=== PATIENT | female | born 1955 | race Caucasian/White ===

== ENCOUNTER 2018-12-22 12:24 | Emergency (ER) | payer BC ==
[2018-12-22] MEDS ORDERED: HYDROmorphone 2 MG/ML SDV IM STA (12:30)
--- NOTE | 2018-12-22 12:41 | EDM.PDOC ---
ED HPI GENERAL MEDICAL PROBLEM - General Stated Complaint: BACK PAIN Time Seen by Provider: 12/22/18 12:24 Source of Information: Reports: Patient, Family History Limitations: Reports: Physical Impairment - History of Present Illness INITIAL COMMENTS - FREE TEXT/NARRATIVE: 63 y.o.w.f came to the ed with ER due to chronic low back pain, which is worse today. No trauma, no stool or urine incontinence. Pain is localized at her left lower back. No N/V/D no dizziness, no SOB, no chest pain are any other acute medical issues. BP 172/82 RR 18 Pulse ox 100% on RA Pulse 101 Temp 36.8 Onset Date: 12/19/18 Onset Time: 06:00 Duration: Day(s):, Getting Worse, Intermittent Location: Reports: Back Quality: Reports: Burning, Dull, Pressure, Same as Previous Episode Severity: Moderate Improves with: Reports: Rest Worsens with: Reports: Movement Context: Reports: Other (chronic) Associated Symptoms: Reports: No Other Symptoms, Other (no stool or urine incontinence) LEFT LOWER BACK RADIATING TO LEFT HIP Pain Score (Numeric/FACES): 9 - Related Data Allergies Allergy/AdvReac Type Severity Reaction Status Date / Time latex Allergy Rash Verified 12/22/18 12:34 morphine Allergy Rash Verified 12/22/18 12:34 Home Meds: Home Meds Acetaminophen/oxyCODONE [Percocet 325-5 MG] 1 each PO Q6HRBH PRN #16 tab [Rx] Allopurinol [Zyloprim] 100 mg PO DAILY 12/22/18 [History] Aspirin [Halfprin] 81 mg PO DAILY 12/22/18 [History] Calc/D3/Mag/Zn/Estimator Lumber/Babatunde/[place] [Calcium 600 MG Plus Vit D] 1 each PO DAILY [History] Ciprofloxacin HCl [Cipro] 500 mg PO BID #20 tablet 12/22/18 [Rx] Hydrochlorothiazide/Lisinopril [Lisinopril/HCTZ 20-12.5 MG] 2 tab PO DAILY 12/22 [History] Multivitamins [Tab-A-Amara] 1 each PO DAILY 12/22/18 [History] Omeprazole 20 mg PO DAILY 12/22/18 [History] Simvastatin [Zocor] 20 mg PO BEDTIME 12/22/18 [History] ED ROS GENERAL - Review of Systems Review Of Systems: See Below Constitutional: Reports: No Symptoms HEENT: Reports: No Symptoms Respiratory: Reports: No Symptoms Cardiovascular: Reports: No Symptoms Endocrine: Reports: No Symptoms GI/Abdominal: Reports: No Symptoms : Reports: No Symptoms Musculoskeletal: Reports: Back Pain Skin: Reports: No Symptoms Neurological: Reports: No Symptoms Psychiatric: Reports: No Symptoms Hematologic/Lymphatic: Reports: No Symptoms Immunologic: Reports: No Symptoms ED EXAM,LOWER BACK PAIN/INJURY - Physical Exam Exam: See Below Exam Limited By: Physical Impairment General Appearance: Alert, WD/WN, Moderate Distress, Obese Eye Exam: Bilateral Eye: Normal Inspection Ears: Normal External Exam Nose: Normal Inspection Throat/Mouth: Normal Inspection Head: Atraumatic, Normocephalic Neck: Normal Inspection, Supple, Non-Tender Respiratory/Chest: No Respiratory Distress, Lungs Clear, Normal Breath Sounds, No Accessory Muscle Use, Chest Non-Tender Cardiovascular: Normal Peripheral Pulses, Regular Rate, Rhythm, No Edema, No Gallop, No JVD, No Murmur, No Rub GI/Abdominal: Normal Bowel Sounds, Soft, Non-Tender, No Organomegaly, No Distention, No Abnormal Bruit, No Mass, Pelvis Stable (Female) Exam: Deferred Rectal (Female) Exam: Deferred Back Exam: Normal Inspection, Decreased Range of Motion Extremities: Normal Inspection, Normal Range of Motion, Non-Tender, Normal Capillary Refill Neurological: Alert, Normal Mood/Affect, Normal Dorsiflexion, CN II-XII Intact, Abnormal Gait (due to back pain) Psychiatric: Normal Affect, Normal Mood Skin Exam: Warm, Dry, Intact, Normal Color, No Rash Lymphatic: No Adenopathy Course - Vital Signs Text/Narrative:: 63 y.o.w.f came to the ed with ER due to chronic low back pain, which is worse today. No trauma, no stool or urine incontinence. Pain is localized at her left lower back. No N/V/D no dizziness, no SOB, no chest pain are any other acute medical issues. BP 172/82 RR 18 Pulse ox 100% on RA Pulse 101 Temp 36.8 PE: WNWD W F with chonic low back pain exacerbation after she got out her bed this am. 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 Imaging: Spinal stenosis, disc protrusions, official report is pending Impression: Spinal stenosis, Disc protrusions, UTI Tx: Levaquin, Dilaudid, ICE Reexam: Improved pain from 06/21 to 02/19 Plan: D/C with instructions Last Recorded V/S: Last Vital Signs Temp 36.7 C 12/22/18 14:03 Pulse 66 12/22/18 14:30 Resp 16 12/22/18 14:30 BP 167/62 H 12/22/18 14:30 Pulse Ox 96 12/22/18 14:30 - Orders/Labs/Meds Labs: Laboratory Tests 12/22/18 Range/Units 13:15 Urine Color Yellow (YELLOW) Urine Appearance Slightly cloudy (CLEAR) Urine pH 6.0 (5.0-6.5) Ur Specific [place] 1.020 (1.010-1.025) Urine Protein Negative (NEGATIVE) mg/dL Urine Glucose (UA) Normal (NORMAL) mg/dL Urine Ketones Negative (NEGATIVE) mg/dL Urine Occult Blood Negative (NEGATIVE) Urine Nitrite Negative (NEGATIVE) Urine Bilirubin Negative (NEGATIVE) Urine Urobilinogen Normal (NEGATIVE) mg/dL Ur Leukocyte Esterase Small H (NEGATIVE) Urine RBC 0-5 (0-5) Urine WBC 10-20 H (0-5) Ur Squamous Epith Cells Few H (NS,R,O) Urine Bacteria Moderate H (NS) Meds: Medications Discontinued Medications Generic Name Dose Route Start Last Admin Trade Name Freq PRN Reason Stop Dose Admin Hydromorphone HCl 1 mg 12/22/18 12:30 12/22/18 12:40 Dilaudid IM 12/22/18 12:31 1 mg ONETIME STA Administration Levofloxacin 500 mg 12/22/18 14:00 12/22/18 14:08 Levaquin PO 12/22/18 14:01 500 mg ONETIME ONE Administration Departure - Departure Time of Disposition: 14:09 Disposition: Home, Self-Care 01 Condition: Good Clinical Impression: Spinal stenosis of lumbar region at multiple levels, Protrusion of lumbar intervertebral disc, UTI symptoms - Discharge Information Prescriptions: Acetaminophen/oxyCODONE [Percocet 325-5 MG] 1 each PO Q6HRBH PRN #16 tab PRN Reason: for severe pain only Ciprofloxacin HCl [Cipro] 500 mg PO BID #20 tablet Instructions: Back Pain, Adult, Urinary Tract Infection, Adult, Spinal Stenosis , [id number] Referrals: Lina,Eamon, MD [Primary Care Provider] - Forms: ED Department Discharge Additional Instructions: Please apply ICE to lower back, please take Motrin 600 mg with food every 6-8 hours for mod pain, Percocet for severe pain only, please f/u with your PMD/ Spinal surgeon, Please come back if your symptoms get worse acutely
[2018-12-22] MEDS ORDERED: Levofloxacin 500 MG Tab PO ONE (14:00)
--- NOTE | 2018-12-22 14:50 | CT ---
INDICATION: Severe low back pain and left hip pain. CT PELVIS WITHOUT CONTRAST: Spiral 1.25 mm axial sections were obtained through the pelvis with sagittal and coronal reconstructions without contrast. Examination was obtained 12/22/18 - no comparisons. Total exam DLP = 1,164.23 mGy-cm. Low density lesion with trabeculation is noted in the vertebral body of L4, possibly representing a hemangioma. Mild degenerative changes are noted at the sacroiliac joints, significantly more prominent on the right than the left. Mild degenerative changes are noted at the hip joints with the joint spaces appearing somewhat narrowed posteriorly. Overall bone density appeared to be normal. Incidentally noted were findings compatible with previous bowel surgery in the sigmoid colon and absence of the uterus, compatible with hysterectomy. The urinary bladder appeared normal. The appendix is felt to be normal in size, seen on coronal images #45 through # 50 but did include metallic density within it as amorphous and may represent medication. The appendix is also visualized on axial images #49 through #66. No free air or bowel obstruction was suggested. Calcifications are noted in the aorta and iliac arteries. IMPRESSION: 1. No acute abnormality was identified. 2. Mild degenerative changes with mild loss of craniolateral joint space at the hips. 3. Asymmetrical mild degenerative change is noted at the sacroiliac joints, right greater than left. 4. ASD. 5. Metallic density in the appendix, likely due to medication, is amorphous not obstructive, no appendicitis. Report was given by phone to Dr. Whitaker at 1402 hours on 12/22/18. [facility]
--- NOTE | 2018-12-22 15:06 | CT ---
INDICATION: Severe low back pain and left hip pain. CT LUMBOSACRAL SPINE WITHOUT CONTRAST: Spiral 2.5 mm axial sections were obtained through the lumbosacral spine with sagittal and coronal reconstructions and reconstructions with angle through the disk spaces at L2-3, L3-4, L4-5, and L5-S1. Examination was obtained 12/22/18 - no comparisons. Total exam DLP = 2,460.44 mGy-cm. Bulging disks are noted at L2-3, L3-4, L4-5, and L5-S1 with definite narrowing of disk space seen at L4-5 and especially at L5-S1. A mild degree of spinal stenosis is noted at L3-4 with a moderate to moderately severe degree of spinal stenosis due to bulging disk and hypertrophic degenerative changes at L4-5 apophyseal joints. The hypertrophic spurring is fairly severe at that level. It is less severe but still at least moderate in degree of severity at L3-4 with relatively milder degenerative changes at the L2 -3 apophyseal joints. At the L4 vertebral body, there is a low density trabeculated lesion, which likely represents a hemangioma, most likely of benign origin. Nuclear bone imaging or MRI may be helpful to confirm benign lesion, if symptoms are directly referable to that area in the future. No evidence of an acute bone or joint abnormality was identified with vertebral body heights well maintained. There is suggestion of very minimal anterolisthesis at L4-5 and L5-S1. IMPRESSION: 1. Spinal stenosis, moderately severe at L4-5, moderate at L3-4. 2. No evidence of abdominal aortic aneurysm. 3. Protruding disks in general with no definite focal herniated nucleus pulposus seen from the L2-3 level through the L5-S1 level. 4. Mild dextroconcave scoliosis of the upper middle lumbar spine. 5. Probable localized limited hemangioma at the L4 vertebral body. 6. Degenerative changes sacroiliac joints. Report was given by phone to Dr. Whitaker at 1402 hours on 12/22/18. [facility]
== END 2018-12-22 14:26 | disposition home or self-care (01) ==
LOC: FB.ED 12:24
DX: M48.061 Spinal stenosis, lumbar region without neurogenic claudication (principal); M51.26 Other intervertebral disc displacement, lumbar region; N39.0 Urinary tract infection, site not specified; Z79.899 Other long term (current) drug therapy; Z91.040 Latex allergy status; Z88.5 Allergy status to narcotic agent
CPT/HCPCS: 72131; 72192; 81001; 87086; 87088; 87186; 96372; 99284; A9270; J1170

== ENCOUNTER 2018-12-25 21:36 | Emergency (ER) | payer BC ==
[2018-12-25] MEDS ORDERED: Promethazine 25 MG/ML SDV IM ONE (22:36)
[2018-12-25] MEDS ORDERED: HYDROmorphone 2 MG/ML SDV IM ONE (22:36)
--- NOTE | 2018-12-25 22:45 | EDM.PDOC ---
ED HPI GENERAL MEDICAL PROBLEM - General Chief Complaint: Back Pain or Injury Stated Complaint: BACK PAIN Time Seen by Provider: 12/25/18 22:25 Source of Information: Reports: Patient History Limitations: Reports: No Limitations - History of Present Illness INITIAL COMMENTS - FREE TEXT/NARRATIVE: 63-year-old female with history of chronic left lower back pain who has had a worsening of her back pain since 12/20/2018. She was seen in the emergency department on 12/22/[address] scan of her pelvis and her lumbar spine which showed no acute abnormalities in the pelvis but she did have spinal stenosis at several levels and this was felt to be the cause of her worsening pain. She was seen by her primary doctor this morning and was supposed to be set up for an epidural steroid injection of her back she has been taking Percocet for her pain but apparently has only been taking one 5/325 tablet for the pain and she took a dose 7:30 and has been unable to get comfortable from the pain. It's pain as an 8/10. She appears to be quite uncomfortable area in she has had no fevers or chills. She's had no nausea or vomiting. Pain did seem to radiate to her left lower abdomen with a spasm in the area that was short- lived. She has been having normal bowel movements. She apparently was also treated for urinary tract infection but she is having no urinary symptoms present. She presents to the emergency department now reporting that she just can't take the pain and wants some relief from the pain. There are no other associated signs or symptoms. There are no other modifying factors. Onset: Gradual, Other (As above) Duration: Waxing/Waning Location: Reports: Back (As above) Quality: Reports: Ache, Sharp, Throbbing Severity: Severe Improves with: Reports: Cold Therapy. 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: As in history of present illness left lower back Pain Score (Numeric/FACES): 9 - Related Data Allergies Allergy/AdvReac Type Severity Reaction Status Date / Time latex Allergy Rash Verified 12/25/18 21:57 morphine Allergy Rash Verified 12/25/18 21:57 Home Meds: Home Meds Acetaminophen/oxyCODONE [Percocet 325-5 MG] 1 each PO Q6HRBH PRN #16 tab [Rx] Allopurinol [Zyloprim] 100 mg PO DAILY 12/22/18 [History] Aspirin [Halfprin] 81 mg PO DAILY 12/22/18 [History] Calc/D3/Mag/Zn/Juvenile Justice Officer/Bab[place]unde/[place] [Calcium 600 MG Plus Vit D] 1 each PO DAILY [History] Ciprofloxacin HCl [Cipro] 500 mg PO BID #20 tablet 12/22/18 [Rx] Hydrochlorothiazide/Lisinopril [Lisinopril/HCTZ 20-12.5 MG] 2 tab PO DAILY 12/22 [History] Multivitamins [Tab-A-Amara] 1 each PO DAILY 12/22/18 [History] Omeprazole 20 mg PO DAILY 12/22/18 [History] Simvastatin [Zocor] 20 mg PO BEDTIME 12/22/18 [History] Past Medical History Cardiovascular History: Reports: High Cholesterol, Hypertension Other Gastrointestinal History: DIVERTICULITIS Musculoskeletal History: Reports: Arthritis, Back Pain, Chronic - Infectious Disease History Other Infectious Disease History: HAS HEPATITIS WHEN SHE WAS YOUNGER BUT UNKNOWN WHAT TYPE - Past Surgical History HEENT Surgical History: Reports: Other (See Below) Other HEENT Surgeries/Procedures: UPPER LIP CA GI Surgical History: Reports: Other (See Below) Other GI Surgeries/Procedures: COLON RESECTION Female Surgical History: Reports: Section, Hysterectomy Other Musculoskeletal Surgeries/Procedures:: LEFT FOOT PLATE AND SCREWS Social & Family History - Family History Family Medical History: Noncontributory - Tobacco Use Smoking Status *Q: Never Smoker Second Hand Smoke Exposure: No - Caffeine Use Caffeine Use: Reports: Coffee - Recreational Drug Use Recreational Drug Use: No ED ROS GENERAL - Review of Systems Review Of Systems: See Below Constitutional: Reports: No Symptoms HEENT: Reports: No Symptoms Respiratory: Reports: No Symptoms Cardiovascular: Reports: No Symptoms Endocrine: Reports: No Symptoms GI/Abdominal: Reports: No Symptoms : Reports: No Symptoms Musculoskeletal: Reports: Back Pain. Denies: Joint Swelling Skin: Reports: No Symptoms Neurological: Reports: No Symptoms. Denies: Headache, Difficulty Walking, Weakness Psychiatric: Reports: No Symptoms Hematologic/Lymphatic: Denies: Easy Bleeding, Easy Bruising Immunologic: Reports: No Symptoms ED EXAM, GENERAL - Physical Exam Exam: See Below Exam Limited By: No Limitations General Appearance: Alert, WD/WN, Moderate Distress Eye Exam: Bilateral Eye: EOMI, Normal Inspection, PERRL Ears: Normal External Exam, Hearing Grossly Normal Ear Exam: Bilateral Ear: Auricle Normal Nose: Normal Inspection, Normal Mucosa, No Blood Throat/Mouth: Normal Inspection, Normal Voice Head: Atraumatic, Normocephalic Neck: Normal Inspection, Supple, Non-Tender, Full Range of Motion Respiratory/Chest: No Respiratory Distress, Lungs Clear, Normal Breath Sounds Cardiovascular: Normal Peripheral Pulses, Regular Rate, Rhythm, No JVD Peripheral Pulses: 2+: Radial (L), Radial (R) GI/Abdominal: Normal Bowel Sounds, Soft, Non-Tender, No Organomegaly, No Distention Extremities: Normal Inspection, Normal Range of Motion, No Pedal Edema Neurological: Alert, Oriented, Normal Cognition, No Motor/Sensory Deficits Psychiatric: Normal Affect, Normal Mood Skin Exam: Warm, Dry, Intact, Normal Color, No Rash Lymphatic: No Adenopathy Course - Vital Signs Last Recorded V/S: Last Vital Signs Temp 36.8 C 12/25/18 21:40 Pulse 104 H 12/25/18 21:40 Resp 17 12/25/18 21:40 BP 151/59 H 12/25/18 21:40 Pulse Ox 100 12/25/18 21:40 - Orders/Labs/Meds Meds: Medications Discontinued Medications Generic Name Dose Route Start Last Admin Trade Name Freq PRN Reason Stop Dose Admin Hydromorphone HCl 2 mg 12/25/18 22:36 Dilaudid IM 12/25/18 22:37 ONETIME ONE Promethazine HCl 25 mg 12/25/18 22:36 Phenergan IM 12/25/18 22:37 ONETIME ONE - Re-Assessments/Exams Free Text/Narrative Re-Assessment/Exam: 12/25/18 22:42: The results of her CT scan of her lumbar spine and her pelvis were reviewed. She appears to have spinal stenosis causing symptoms. She has only been taking one 5/325 Percocet at home every hours for pain. In the short course, she will need to increase this to 2 tablets every 6 hours as needed. She does appear to be in pain but otherwise nontoxic. She is just seen her doctor this morning and was supposed to be set up for an epidural steroid injection. I will plan on giving her a dose of Dilaudid and Phenergan now and have her follow-up with her primary doctor tomorrow at least telephonically to try to arrange the back injection sooner. Departure - Departure Time of Disposition: 22:50 Disposition: Home, Self-Care 01 Condition: Good Clinical Impression: Spinal stenosis of lumbar region at multiple levels, Lumbar back pain, Uncontrolled pain - Discharge Information Instructions: Chronic Back Pain Referrals: Eamon Mills MD [Primary Care Provider] - Additional Instructions: You may take 2 tablets of your Percocet/oxycodone every 6 hours as needed for pain. You were given an injection of Dilaudid and Phenergan tonight for your pain. You should rest. You should ambulate as tolerated. Follow-up with Dr. Mcgrath telephonically tomorrow. Back to the emergency department for abdominal pain, leg weakness, bowel or bladder control problems, fever or any other concerning sign or symptom.
== END 2018-12-25 23:27 | disposition home or self-care (01) ==
LOC: FB.ED 21:36
DX: M48.061 Spinal stenosis, lumbar region without neurogenic claudication (principal); E78.00 Pure hypercholesterolemia, unspecified; I10 Essential (primary) hypertension; Z91.040 Latex allergy status; Z88.5 Allergy status to narcotic agent; Z79.899 Other long term (current) drug therapy; Z79.82 Long term (current) use of aspirin
CPT/HCPCS: 96372; 99283; J1170; J2550

== ENCOUNTER 2021-07-24 13:45 | Observation (INO) | payer MEDICARE, BC ==
[2021-07-24] MEDS ORDERED: HYDROmorphone 2 MG/ML SDV IVPUSH PRN (14:08)
[2021-07-24] MEDS ORDERED: Promethazine 25 MG Tab PO PRN (14:08)
[2021-07-24] MEDS ORDERED: Ondansetron 4 MG/2 ML SDV IVPUSH PRN (14:08)
[2021-07-24] MEDS: Sodium Chloride 0.9% 10 ML Syringe FLUSH PRN (14:40)
[2021-07-24] MEDS ORDERED: Iopamidol 755 MG/ML 150 ML Bottle IV ONE (14:46)
--- NOTE | 2021-07-24 15:14 | PCM.HP.2 ---
H&P History of Present Illness - General Date of Service: 07/24/21 Admit Problem/Dx: Admission Diagnosis/Problem Admission Diagnosis/Problem Epigastric pain Source of Information: Patient, Provider History Limitations: Reports: No Limitations - History of Present Illness Initial Comments - Free Text/Narative: Lynda presents for direct admission for epigastric & LLQ pain for past week. She had Covid & Flu vaccines last 07/16, symptoms started next day accompanied with fever so she initially thought it was side effects of vaccines. She did clear liquids for a few days which did not improve the pain. She has irritable bowel so alternates between constipation & diarrhea usually. She has history of diverticulitis, had ciprofloxacin prescribed by Dr Mills for flares so she started this last week. She advanced her diet and states that it didn't make the pain better or worse. She had GI bleed about 2 years ago, had EGD/colonoscopy which did not find source of bleeding but she did require transfusion at the time. She had colon resection for diverticulitis in past, had anastomosis. History of appy, C-sections x 2, tubal ligation but still has her uterus & gallbladder. No fevers today. She states she has been short of breath prior to her vaccines, cough but Covid test in clinic was negative. EKG done in Clinic showed NSR, few premature ventricular beats. WBC 7.1, Hgb 10.3(12.5 on 12/04/20), Cr 1.13(0.9 on 12/04/20), BUN 20, K 4.5, Na 137. UA negative. Covid negative. Isabel Washington had called over for admission for further workup since she had history of GI bleed, Hgb has dropped since last checked, persistent epigastric pain. Code status: full. - Related Data Allergies/Adverse Reactions: Allergies Allergy/AdvReac Type Severity Reaction Status Date / Time latex Allergy Rash Verified 07/24/21 14:39 morphine Allergy Rash Verified 07/24/21 14:39 Home Medications: Home Meds Calc/D3/Mag/Zn/Aravind/Babatunde/[place] [Calcium 600 MG Plus Vit D] 1 each PO DAILY 12/22/18 [History] Ciprofloxacin HCl [Cipro] 500 mg PO BID #20 tablet 12/22/18 [Rx] Hydrochlorothiazide/Lisinopril [Lisinopril/HCTZ 20-12.5 MG] 2 tab PO DAILY 12/22/18 [History] Multivitamins [Tab-A-Amara] 1 each PO DAILY 12/22/18 [History] Simvastatin [Zocor] 20 mg PO BEDTIME 12/22/18 [History] Omeprazole 40 mg PO DAILY@0600 07/24/21 [History] allopurinoL [Zyloprim] 300 mg PO DAILY 07/24/21 [History] Past Medical History HEENT History: Reports: Impaired Vision Cardiovascular History: Reports: High Cholesterol, Hypertension 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: Musculoskeletal History: Reports: Arthritis, Back Pain, Chronic - Infectious Disease History Other Infectious Disease History: HAS HEPATITIS WHEN SHE WAS YOUNGER BUT UNKNOWN WHAT TYPE - Past Surgical History HEENT Surgical History: Reports: Other (See Below) Other HEENT Surgeries/Procedures: UPPER LIP CA GI Surgical History: Reports: Other (See Below) Other GI Surgeries/Procedures: COLON RESECTION Female Surgical History: Reports: Section, Hysterectomy Other Musculoskeletal Surgeries/Procedures:: LEFT FOOT PLATE AND SCREWS Social & Family History - Family History Family Medical History: No Pertinent Family History - Caffeine Use Caffeine Use: Reports: Coffee H&P Review of Systems - Review of Systems: Review Of Systems: Comprehensive ROS is negative, except as noted in HPI. Exam - Exam Exam: See Below - Exam General: Alert, Oriented, Cooperative, Mild Distress HEENT: PERRLA, Conjunctiva Clear, EOMI, Hearing Intact, Mucosa Moist & [place] Neck: Trachea Midline Lungs: Clear to Auscultation, Normal Respiratory Effort. No: Crackles, Wheezing Cardiovascular: Regular Rate, Regular Rhythm GI/Abdominal Exam: Soft, No Distention, Guarding, Tender (epigastric>LLQ), Abnormal Bowel Sounds (hypoactive BS x 4), Other (obese). No: Rigid, Rebound (Female) Exam: Deferred Rectal (Female) Exam: Deferred Extremities: No Pedal Edema, Normal Capillary Refill Peripheral Pulses: 2+: Radial (L), Radial (R), Posterior Tibial (L), Posterior Tibial (R), Dorsalis Pedis (L), Dorsalis Pedis (R) Skin: Warm, Dry, Intact Neurological: Cranial Nerves Intact, Normal Speech, Normal Tone *Q Meaningful Use (ADM) - VTE *Q VTE Pharmacological Contraindications *Q: Risk of Bleeding - VTE Risk Assess *Q Each Risk Factor Represents 1 Point: Obesity ( BMI > 25 kg/m2) Total Score 1 Point Risk Factors: 1 Each Risk Factor Represents 2 Points: Age 60 - 74 Years Total Score 2 Point Risk Factors: 2 Each Risk Factor Represents 3 Points: None Total Score 3 Point Risk Factors: 0 Each Risk Factor Represents 5 Points: None Total Score 5 Point Risk Factors: 0 Venous Thromboembolism Risk Factor Score *Q: 3 - Problem List (1) Epigastric pain SNOMED Code(s): 67760779 ICD Code: R10.13 - EPIGASTRIC PAIN Status: Acute Current Visit: Yes (2) LLQ pain SNOMED Code(s): 371807230 ICD Code: R10.32 - LEFT LOWER QUADRANT PAIN Status: Acute Current Visit: Yes (3) Dehydration SNOMED Code(s): 75813216 ICD Code: E86.0 - DEHYDRATION Status: Acute Current Visit: Yes (4) Anemia SNOMED Code(s): 652379408 ICD Code: D64.9 - ANEMIA, UNSPECIFIED Status: Acute Current Visit: Yes (5) History of GI bleed SNOMED Code(s): 480764632 ICD Code: Z87.19 - PERSONAL HISTORY OF OTHER DISEASES OF THE DIGESTIVE SYSTEM Status: Chronic Current Visit: Yes (6) History of diverticulosis SNOMED Code(s): 257538041 ICD Code: Z87.19 - PERSONAL HISTORY OF OTHER DISEASES OF THE DIGESTIVE SYSTEM Status: Chronic Current Visit: Yes (7) History of colon resection SNOMED Code(s): 663918509 ICD Code: Z90.49 - ACQUIRED ABSENCE OF OTHER SPECIFIED PARTS OF DIGESTIVE TRACT Status: Acute Current Visit: Yes Problem Details: with anastomosis Problem List Initiated/Reviewed/Updated: Yes Orders Last 24hrs: Active Orders 24 hr Category Date Time Status Patient Status [ADT] Routine ADT 07/24/21 14:08 Active Ambulate [RC] PER UNIT ROUTINE Care 07/24/21 14:10 Active Height and Weight [RC] UPON Care 07/24/21 14:08 Active Intake and Output [RC] QSHIFT Care 07/24/21 14:10 Active Oxygen Therapy [RC] PRN Care 07/24/21 14:08 Active Up ad Blanca [RC] ASDIRECTED Care 07/24/21 14:08 Active VTE/DVT Education [RC] Per Unit Routine Care 07/24/21 14:08 Active Vital Signs [RC] QSHIFT Care 07/24/21 14:08 Active Clear Liquid Diet [DIET] Diet 07/24/21 Dinner Active Abdomen Pelvis w Cont [CT] Urgent Exams 07/24/21 14:08 Ordered BASIC METABOLIC PANEL,BMP [CHEM] Routine Lab 07/25/21 06:00 Ordered CBC WITH AUTO DIFF [HEME] Routine Lab 07/25/21 06:00 Ordered Acetaminophen [TylenoL] Med 07/24/21 14:08 Active 650 mg PO Q4H PRN HYDROmorphone [Dilaudid] Med 07/24/21 14:08 Active 0.5 mg IVPUSH Q2H PRN Ketorolac [Toradol] Med 07/24/21 14:08 Active 30 mg IVPUSH Q6H PRN Ondansetron [Zofran] Med 07/24/21 14:08 Active 4 mg IVPUSH Q6H PRN Promethazine [Phenergan] Med 07/24/21 14:08 Active 25 mg PO Q6H PRN Sodium Chloride 0.9% [Saline Flush] Med 07/24/21 14:08 Active 10 ml FLUSH ASDIRECTED PRN Saline Lock Insert [OM.PC] Routine Oth 07/24/21 14:08 Ordered Resuscitation Status Routine Resus Stat 07/24/21 14:08 Ordered Medication Orders Acetaminophen (Acetaminophen 325 Mg Tab) 650 mg PO Q4H PRN PRN Reason: Pain (Mild 1-3)/fever Hydromorphone HCl (Hydromorphone 2 Mg/Ml Sdv) 0.5 mg IVPUSH Q2H PRN PRN Reason: Pain (severe 7-10) Ketorolac Tromethamine (Ketorolac 30 Mg/Ml Sdv) 30 mg IVPUSH Q6H PRN PRN Reason: Pain (moderate 4-6) Ondansetron HCl (Ondansetron 4 Mg/2 Ml Sdv) 4 mg IVPUSH Q6H PRN PRN Reason: Nausea/Vomiting Promethazine HCl (Promethazine 25 Mg Tab) 25 mg PO Q6H PRN PRN Reason: nausea, able to take PO Sodium Chloride (Sodium Chloride 0.9% 10 Ml Syringe) 10 ml FLUSH ASDIRECTED PRN PRN Reason: Keep Vein Open Assessment/Plan Comment:: 1. Admission for observation for epigastric & LLQ pain, history of GI bleed/diverticulosis/colon resection. 2. Abdominal pain: CT abdomen/pelvis with contrast, Cr 1.13. Clear liquids until CT obtained. Phenergan & Zofran as needed nausea. Toradol 30 mg IV q6h prn moderate pain, Hydromorphone 0.5 mg IV q2h prn severe pain, Tylenol 650 mg po q4h as needed mild pain. Fecal occult ordered. Repeat CBC & BMP tomorrow. Adjust treatments as necessary. 3. Dehydration: mild. NS at 125 ml/hr x 1 liter. 4. HTN: continue home medications. 5. Diet: Clears. 6. Activity: as tolerated. 7. DVT prophylaxis: ambulate. 8. CODE STATUS: FULL. 9. Disposition: anticipate 24-48 hours pain control, IV fluids and further stud ies to find source of epigastric pain. - Mortality Measure Prognosis:: Good
[2021-07-24] MEDS: Ketorolac 30 MG/ML SDV IVPUSH PRN ×2 (15:25→21:42)
[2021-07-24] MEDS ORDERED: Sodium Chloride 0.9% 1,000 ML IV SCH (15:30)
[2021-07-24] MEDS: cefTRIAXone 2 GM Vial IVPUSH SCH (17:01)
[2021-07-24] MEDS: Acetaminophen 325 MG Tab PO PRN (17:11)
[2021-07-24] MEDS: metroNIDAZOLE/Normal Saline 500 MG in Premix Bag 1 BAG IV SCH (17:13)
--- NOTE | 2021-07-24 17:42 | CT ---
INDICATION: Epigastric/left lower quadrant pain. History of diverticulitis. CT ABDOMEN AND PELVIS WITH CONTRAST: Spiral 3.75 mm axial sections were obtained through the abdomen and pelvis with 125 mL Isovue-370 at 3.5 mL/second with sagittal and coronal reconstructions 07/24/[address] of the pelvis without contrast dated 12/22/18. TOTAL EXAM DLP: 2073.72 mGy/cm. Somewhat heavy markings are noted at the left lower lobe and lingula, likely fibrotic in nature, but making it difficult to exclude minimal patchy bronchopneumonia. No gross consolidating pneumonia or effusion was seen, however. The heart appears moderately enlarged. No pericardial effusion was seen. The liver had a normal appearance. The gallbladder was abnormal with a calculus in the neck of the gallbladder, which measured approximately 18 mm. The gallbladder was not enlarged, however, and no pericholecystic fat stranding or thickening of the wall was seen to strongly suggest an acute cholecystitis at this time. The pancreas appeared normal. The spleen appeared normal. The adrenal glands appeared normal. A few tiny low-density lesions are noted compatible with simple cysts in both kidneys. Some of the lesions are too small to characterize. No obstructive uropathy was suggested. The kidneys were otherwise unremarkable. Calcifications are noted minimally in the aorta. No dilatation of aorta was seen. There is some calcification also in iliac arteries. The urinary bladder appeared normal. The appendix is absent compatible with history of its removal. Diverticulosis coli is noted with diverticula throughout most of the colon. In the upper middle portion of the descending colon, there is thickening of the wall with pericolonic fat-stranding. No definite free air or abscess formation was seen, however. Findings are compatible with acute diverticulitis. No retroperitoneal mass was seen. Retroperitoneal lymphadenopathy is noted, which could be reactive to infection. A small umbilical hernia is noted, including only fat. Another small ventral hernia is noted in the lower pelvis area of the midline anterior abdominal wall, including only fat also, best seen on axial images 100 through 103. There is an anastomosis in the sigmoid colon area compatible with colon resection in that area. The uterus is absent compatible with history of hysterectomy. A low-density lesion is noted in the L4 vertebral body, etiology indeterminate. It may represent a simple bone cyst, as it is unchanged from 12/22/18 CT of the pelvis. The degenerative disc disease present at L4-5 and L5-S1 also appears stable. IMPRESSION: 1. Descending colon diverticulitis. No definite abscess, but there is some localized peritonitis. No free air. 2. Multicystic changes likely in the kidneys. 3. Cholelithiasis. 4. ASD. 5. Probable ASHD. 6. Post appendectomy. 7. Post hysterectomy. 8. Two ventral hernias, small, including only fat. 9. Diverticulosis coli, in general. 10. Sigmoid colon resection. 11. 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 12. Small fixed hiatal hernia is noted. Report was called to Dr. Arenas at 1616 hours. [facility]
[2021-07-24] MEDS: Simvastatin 20 MG Tab *PTOM PO SCH (21:40)
[2021-07-25] MEDS: metroNIDAZOLE/Normal Saline 500 MG in Premix Bag 1 BAG IV SCH ×3 (01:02→16:33)
[2021-07-25] MEDS: Ketorolac 30 MG/ML SDV IVPUSH PRN (03:56)
[2021-07-25] MEDS: Sodium Chloride 0.9% 10 ML Syringe FLUSH PRN ×2 (03:57→08:55)
[2021-07-25] MEDS: Allopurinol 300 MG Tab *PTOM PO SCH (08:06)
--- NOTE | 2021-07-25 11:15 | PCM.PN ---
- General Info Date of Service: 07/25/21 Subjective Update: Lynda's CT showed diverticulitis of upper portion of descending colon yesterday, her pain is improved today, tolerating diet. Her breathing is better, states it was more due to her anxiety. She didn't sleep well last night, states mainly due to not being in her own home. No fevers, no vomiting. No diarrhea. Functional Status: Reports: Pain Controlled, Tolerating Diet - Patient Data Vitals - Most Recent: Last Vital Signs Temp 97.6 F 07/25/21 07:34 Pulse 68 07/25/21 07:34 Resp 16 07/25/21 07:34 BP 128/68 07/25/21 07:34 Pulse Ox 96 07/25/21 07:34 Weight - Most Recent: 251 lb 1.6 oz I&O - Last 24 Hours: Intake & Output 07/24/21 07/25/21 07/25/21 22:59 06:59 14:59 Intake Total 10 1100 Output Total 350 200 Balance -340 900 Lab Results Last 24 Hours: Laboratory Results - last 24 hr 07/25/21 07/25/21 Range/Units 06:22 06:22 WBC 5.0 (3.0-10.3) x10-3/uL RBC 3.76 (3.60-5.20) x10(6)uL Hgb 9.2 L (11.4-15.5) g/dL Hct 29.4 L (34.2-48.2) % MCV 78.1 (76.7-100.5) fL MCH 24.6 (23.9-33.9) pg MCHC 31.4 L (31.9-34.8) g/dL RDW 17.2 H (12.3-16.5) % Plt Count 310 (151-488) x10(3)uL MPV 7.7 (7.1-12.4) fL Neut % (Auto) 61.4 (30.8-76.2) % Lymph % (Auto) 21.2 (18.4-52.1) % Wilkin % (Auto) 11.5 (4.4-15.7) % Eos % (Auto) 4.2 (0.6-8.1) % Baso % (Auto) 1.7 H (0.2-1.5) % Neut # (Auto) 3.1 (1.5-6.3) x10-3/uL Lymph # (Auto) 1.1 (1.0-4.4) x10-3/uL Wilkin # (Auto) 0.6 (0.3-1.0) x10-3/uL Eos # (Auto) 0.2 (0.0-0.8) x10-3/uL Baso # (Auto) 0.1 (0.0-0.1) x10-3/uL Sodium 133 L (135-145) mmol/L Potassium 4.0 (3.5-5.3) mmol/L Chloride 104 (100-110) mmol/L Carbon Dioxide 26 (21-32) mmol/L BUN 20 H (7-18) mg/dL Creatinine 1.4 H (0.55-1.02) mg/dL Est Cr Clr Drug Dosing 34.13 mL/min Estimated GFR (MDRD) 38 L (>60) BUN/Creatinine Ratio 14.3 (9-20) Glucose 98 (80-116) mg/dL Calcium 8.6 (8.6-10.2) mg/dL Med Orders - Current: Current Medications Acetaminophen (Acetaminophen 325 Mg Tab) 650 mg PO Q4H PRN PRN Reason: Pain (Mild 1-3)/fever Last Admin: 07/24/21 17:11 Dose: 650 mg Documented by: Allopurinol (Allopurinol 300 Mg Tab *Ptom) 300 mg PO DAILY [facility] [place] Last Admin: 07/25/21 08:06 Dose: 300 mg Documented by: Ceftriaxone Sodium (Ceftriaxone 2 Gm Vial) 2 gm IVPUSH Q24H [facility] Last Admin: 07/24/21 17:01 Dose: 2 gm Documented by: Hydromorphone HCl (Hydromorphone 2 Mg/Ml Sdv) 0.5 mg IVPUSH Q2H PRN PRN Reason: Pain (severe 7-10) Last Admin: 07/24/21 16:02 Dose: 0.5 mg Documented by: Metronidazole 500 mg/ Premix 100 mls @ 100 mls/hr IV Q8H [facility] [place] Last Admin: 07/25/21 08:48 Dose: 100 mls/hr Documented by: Ketorolac Tromethamine (Ketorolac 30 Mg/Ml Sdv) 30 mg IVPUSH Q6H PRN PRN Reason: Pain (moderate 4-6) Last Admin: 07/25/21 03:56 Dose: 30 mg Documented by: Lisinopril (Lisinopril 40 Mg Tab) 40 mg PO DAILY [facility] [place] Last Admin: 07/25/21 08:06 Dose: 40 mg Documented by: (Omeprazole [ Omeprazole] 40 Mg Cap.Cr) *Ptom 40 mg PO DAILY@0600 [facility] [place] [place] Last Admin: 07/25/21 06:44 Dose: 40 mg Documented by: Ondansetron HCl (Ondansetron 4 Mg/2 Ml Sdv) 4 mg IVPUSH Q6H PRN PRN Reason: Nausea/Vomiting Promethazine HCl (Promethazine 25 Mg Tab) 25 mg PO Q6H PRN PRN Reason: nausea, able to take PO Simvastatin (Simvastatin 20 Mg Tab *Ptom) 20 mg PO BEDTIME [facility] [place] Last Admin: 07/24/21 21:40 Dose: 20 mg Documented by: Sodium Chloride (Sodium Chloride 0.9% 10 Ml Syringe) 10 ml FLUSH ASDIRECTED PRN PRN Reason: Keep Vein Open Last Admin: 07/25/21 08:55 Dose: 10 ml Documented by: Discontinued Medications Sodium Chloride (Normal Saline) 1,000 mls @ 125 mls/hr IV ASDIRECTED [facility] [place] Stop: 07/24/21 23:29 Last Admin: 07/24/21 15:55 Dose: 125 mls/hr Documented by: Iopamidol (Iopamidol 755 Mg/Ml 150 Ml Bottle) 150 ml IV ONETIME ONE Stop: 07/24/21 14:47 Last Admin: 07/24/21 15:13 Dose: 125 ml Documented by: - Exam General: Alert, Oriented, Cooperative, No Acute Distress Lungs: Clear to Auscultation, Normal Respiratory Effort Cardiovascular: Regular Rate, Regular Rhythm GI/Abdominal Exam: Normal Bowel Sounds, Soft, No Distention, Guarding, Tender (Epigastritic/LUQ/LLQ mild TTP), Other (obese) Extremities: No Pedal Edema Peripheral Pulses: 2+: Radial (L), Radial (R) - Patient Data Lab Results Last 24 hrs: Laboratory Results - last 24 hr 07/25/21 07/25/21 Range/Units 06:22 06:22 WBC 5.0 (3.0-10.3) x10-3/uL RBC 3.76 (3.60-5.20) x10(6)uL Hgb 9.2 L (11.4-15.5) g/dL Hct 29.4 L (34.2-48.2) % MCV 78.1 (76.7-100.5) fL MCH 24.6 (23.9-33.9) pg MCHC 31.4 L (31.9-34.8) g/dL RDW 17.2 H (12.3-16.5) % Plt Count 310 (151-488) x10(3)uL MPV 7.7 (7.1-12.4) fL Neut % (Auto) 61.4 (30.8-76.2) % Lymph % (Auto) 21.2 (18.4-52.1) % Wilkin % (Auto) 11.5 (4.4-15.7) % Eos % (Auto) 4.2 (0.6-8.1) % Baso % (Auto) 1.7 H (0.2-1.5) % Neut # (Auto) 3.1 (1.5-6.3) x10-3/uL Lymph # (Auto) 1.1 (1.0-4.4) x10-3/uL Wilkin # (Auto) 0.6 (0.3-1.0) x10-3/uL Eos # (Auto) 0.2 (0.0-0.8) x10-3/uL Baso # (Auto) 0.1 (0.0-0.1) x10-3/uL Sodium 133 L (135-145) mmol/L Potassium 4.0 (3.5-5.3) mmol/L Chloride 104 (100-110) mmol/L Carbon Dioxide 26 (21-32) mmol/L BUN 20 H (7-18) mg/dL Creatinine 1.4 H (0.55-1.02) mg/dL Est Cr Clr Drug Dosing 34.13 mL/min Estimated GFR (MDRD) 38 L (>60) BUN/Creatinine Ratio 14.3 (9-20) Glucose 98 (80-116) mg/dL Calcium 8.6 (8.6-10.2) mg/dL Result Diagrams: 07/25/21 06:22 07/25/21 06:22 Sepsis Event Note - Focused Exam Vital Signs: Vital Signs Temp Pulse Resp BP Pulse Ox 07/25/21 07:34 97.6 F 68 16 128/68 96 07/25/21 04:00 97.6 F 64 16 130/63 96 07/25/21 01:00 97.9 F 80 16 146/76 H 97 - Problem List & Annotations (1) Diverticulitis large intestine w/o perforation or abscess w/o bleeding SNOMED Code(s): 6600903 Code(s): K57.32 - DVTRCLI OF LG INT W/O PERFORATION OR ABSCESS W/O BLEEDING Status: Acute Current Visit: Yes (2) Epigastric pain SNOMED Code(s): 72619483 Code(s): R10.13 - EPIGASTRIC PAIN Status: Acute Current Visit: Yes (3) LLQ pain SNOMED Code(s): 728469198 Code(s): R10.32 - LEFT LOWER QUADRANT PAIN Status: Acute Current Visit: Yes (4) Dehydration SNOMED Code(s): 75498736 Code(s): E86.0 - DEHYDRATION Status: Resolved Current Visit: Yes (5) Anemia SNOMED Code(s): 354974242 Code(s): D64.9 - ANEMIA, UNSPECIFIED Status: Acute Current Visit: Yes (6) History of GI bleed SNOMED Code(s): 810501517 Code(s): Z87.19 - PERSONAL HISTORY OF OTHER DISEASES OF THE DIGESTIVE SYSTEM Status: Chronic Current Visit: Yes (7) History of diverticulosis SNOMED Code(s): 550363125 Code(s): Z87.19 - PERSONAL HISTORY OF OTHER DISEASES OF THE DIGESTIVE SYSTEM Status: Chronic Current Visit: Yes (8) History of colon resection SNOMED Code(s): 075976755 Code(s): Z90.49 - ACQUIRED ABSENCE OF OTHER SPECIFIED PARTS OF DIGESTIVE TRACT Status: Acute Current Visit: Yes Annotation/Comment:: with anastomosis - Problem List Review Problem List Initiated/Reviewed/Updated: Yes - My Orders Last 24 Hours: My Active Orders 07/24/21 14:08 Patient Status [ADT] Routine Height and Weight [RC] UPON Oxygen Therapy [RC] PRN Up ad Blanca [RC] ASDIRECTED Vital Signs [RC] QSHIFT Acetaminophen [TylenoL] 650 mg PO Q4H PRN HYDROmorphone [Dilaudid] 0.5 mg IVPUSH Q2H PRN Ketorolac [Toradol] 30 mg IVPUSH Q6H PRN Ondansetron [Zofran] 4 mg IVPUSH Q6H PRN Promethazine [Phenergan] 25 mg PO Q6H PRN Sodium Chloride 0.9% [Saline Flush] 10 ml FLUSH ASDIRECTED PRN Saline Lock Insert [OM.PC] Routine Resuscitation Status Routine 07/24/21 14:10 Ambulate [RC] PER UNIT ROUTINE Intake and Output [RC] QSHIFT 07/24/21 15:21 OCCULT BLOOD SCREEN [OP] Routine 07/24/21 16:30 cefTRIAXone [Rocephin] 2 gm IVPUSH Q24H 07/24/21 17:00 metroNIDAZOLE/Normal Saline [Flagyl in NS 500 MG/100 ML] 500 mg Premix Bag 1 bag IV Q8H 07/24/21 21:00 Simvastatin [Zocor] 20 mg PO BEDTIME 07/25/21 06:00 Omeprazole [Omeprazole] 40 mg PO DAILY@0600 07/25/21 09:00 allopurinoL [Zyloprim] 300 mg PO DAILY lisinopriL [Prinivil] 40 mg PO DAILY 07/25/21 09:01 Convert IV to Peripheral Lock [Convert IV to Saline Lock] [OM.PC] Routine 07/25/21 Lunch Soft Diet [DIET] 07/26/21 06:00 BASIC METABOLIC PANEL,BMP [CHEM] Routine CBC WITH AUTO DIFF [HEME] Routine - Plan Plan:: 1. Diverticulitis of descending colon: Rocephin 2g IV q24h, Metronidazole 500 mg IV q8h since she only had partial treatment with 7 days of Ciprofloxacin. Phe nergan & Zofran as needed nausea. Toradol 30 mg IV q6h prn moderate pain, Hydromorphone 0.5 mg IV q2h prn severe pain, Tylenol 650 mg po q4h as needed mild pain. Fecal occult ordered. Repeat CBC & BMP tomorrow. Adjust treatments as necessary. 2. Dehydration: Cr 1.4, was 1.13 in clinic. Repeat tomorrow, diet advanced, encouraged oral fluids. 3. HTN: continue home medications. 4. Diet: soft. 5. Disposition: anticipate 24-48 hours IV antibiotics, pain control and advance diet, possibly switch to orals tomorrow and discharge home, adjust treatments as necessary.
[2021-07-25] MEDS: Acetaminophen 325 MG Tab PO PRN ×3 (13:57→22:29)
[2021-07-25] MEDS: cefTRIAXone 2 GM Vial IVPUSH SCH (16:20)
[2021-07-25] MEDS: Simvastatin 20 MG Tab *PTOM PO SCH (20:53)
[2021-07-26] MEDS: metroNIDAZOLE/Normal Saline 500 MG in Premix Bag 1 BAG IV SCH ×2 (01:53→08:07)
[2021-07-26] MEDS: Acetaminophen 325 MG Tab PO PRN (02:51)
[2021-07-26] MEDS: Sodium Chloride 0.9% 10 ML Syringe FLUSH PRN (02:51)
[2021-07-26] MEDS: Allopurinol 300 MG Tab *PTOM PO SCH (08:07)
[2021-07-26] MEDS ORDERED: Cefdinir 300 MG Cap PO SCH (09:15)
[2021-07-26] MEDS ORDERED: metroNIDAZOLE 500 MG Tab PO SCH (14:00)
--- NOTE | 2021-07-26 17:35 | PCM.DCSUM1 ---
Discharge Summary - Hospital Course HPI Initial Comments: Lynda presents for direct admission for epigastric & LLQ pain for past week. She had Covid & Flu vaccines last 07/16, symptoms started next day accompanied with fever so she initially thought it was side effects of vaccines. She did clear liquids for a few days which did not improve the pain. She has irritable bowel so alternates between constipation & diarrhea usually. She has history of diverticulitis, had ciprofloxacin prescribed by Dr Mills for flares so she started this last week. She advanced her diet and states that it didn't make the pain better or worse. She had GI bleed about 2 years ago, had EGD/colonoscopy which did not find source of bleeding but she did require transfusion at the time. She had colon resection for diverticulitis in past, had anastomosis. History of appy, C-sections x 2, tubal ligation but still has her uterus & gallbladder. No fevers today. She states she has been short of breath prior to her vaccines, cough but Covid test in clinic was negative. EKG done in Clinic showed NSR, few premature ventricular beats. WBC 7.1, Hgb 10.3(12.5 on 12/04/20), Cr 1.13(0.9 on 12/04/20), BUN 20, K 4.5, Na 137. UA negative. Covid negative. Olesya Rocha CNP had called over for admission for further workup since she had history of GI bleed, Hgb has dropped since last checked, persistent epigastric pain. Code status: full. Diagnosis: Stroke: No - Discharge Data Discharge Date: 07/26/21 Discharge Disposition: Home, Self-Care 01 Condition: Good - Referral to Home Health Primary Care Physician: PCP None - Discharge Diagnosis/Problem(s) (1) Diverticulitis large intestine w/o perforation or abscess w/o bleeding SNOMED Code(s): 4540021 ICD Code: K57.32 - DVTRCLI OF LG INT W/O PERFORATION OR ABSCESS W/O BLEEDING Status: Acute (2) Epigastric pain SNOMED Code(s): 34894305 ICD Code: R10.13 - EPIGASTRIC PAIN Status: Resolved (3) LLQ pain SNOMED Code(s): 204981089 ICD Code: R10.32 - LEFT LOWER QUADRANT PAIN Status: Resolved (4) Dehydration SNOMED Code(s): 58017356 ICD Code: E86.0 - DEHYDRATION Status: Resolved (5) Anemia SNOMED Code(s): 053010926 ICD Code: D64.9 - ANEMIA, UNSPECIFIED Status: Acute Problem Details: Remained stable at 9.6, will need Iron studies done as outpatient, as these are sending out and wouldn't go out until tomorrow. (6) History of GI bleed SNOMED Code(s): 284705234 ICD Code: Z87.19 - PERSONAL HISTORY OF OTHER DISEASES OF THE DIGESTIVE SYSTEM Status: Chronic (7) History of diverticulosis SNOMED Code(s): 343978663 ICD Code: Z87.19 - PERSONAL HISTORY OF OTHER DISEASES OF THE DIGESTIVE SYSTEM Status: Chronic (8) History of colon resection SNOMED Code(s): 520024585 ICD Code: Z90.49 - ACQUIRED ABSENCE OF OTHER SPECIFIED PARTS OF DIGESTIVE TRACT Status: Acute Problem Details: with anastomosis - Patient Summary/Data Hospital Course: In clinic: WBC 7.1, Hgb 10.3(12.5 on 12/04/20), Cr 1.13(0.9 on 12/04/20), BUN 20, K 4.5, Na 137. UA negative. Covid negative. CT abdomen/pelvis showed upper portion of descending colon diverticulitis with peritonitis. No free air or abscess seen. Multiple renal cyst, asymptomatic gallstones. Post surgical changes, see report for further details. Started on Rocephin 2g IV q24 and Metronidazole 500 mg IV q8h since she had partial treatment with 7 days of ciprofloxacin as outpatient. She received 2 doses of Rocephin and 6 doses of Metronidazole IV; received 1 dose of Cefdinir and 1 dose of oral Metronidazole 5 00 mg prior to discharge which she tolerated. Repeat WBC was 5.0, 4.8 respectively. BUN 20/Cr 1.4 and today BUN 15/Cr 1.3. Sodium 133 yesterday, 138 today. She used Dilaudid x 1 on 07/24, 3 doses of Toradol and 5 doses of Tylenol during her hospital stay. She did not use any antiemetic medications. Received 1 liter of NS on admission but then maintained hydration orally. Her Hgb was 9.2 and 9.6, unable to get fecal occult sample. She remained stable, no signs of acute blood loss. Unable to do iron studies over the weekend so will have her obtain these as an outpatient. Pain had resolved by day of discharge, tolerating diet and oral antibiotics. Follow up with Olesya Rocha in 1 week for recheck kidney function and iron studies. - Patient Instructions Diet: Usual Diet as Tolerated Activity: As Tolerated Driving: Do Not Drive Showering/Bathing: May Shower Notify Provider of: Fever, Increased Pain, Nausea and/or Vomiting Other/Special Instructions: Follow up with Olesya Rocha CNP in 1 week for recheck your kidney function and do iron studies to see why you are anemic. Take all antibiotics until gone. - Discharge Plan *PRESCRIPTION DRUG MONITORING PROGRAM REVIEWED*: Not Applicable *COPY OF PRESCRIPTION DRUG MONITORING REPORT IN PATIENT RODNEY: Not Applicable Prescriptions/Med Rec: metroNIDAZOLE [Flagyl] 500 mg PO Q8H 8 Days #24 tablet Cefdinir [Omnicef] 300 mg PO BID 8 Days #15 cap Home Medications: Home Meds Calc/D3/Mag/Zn/Aravind/Babatunde/Gabbs [Calcium 600 MG Plus Vit D] 1 each PO DAILY 12/22/18 [History] Hydrochlorothiazide/Lisinopril [Lisinopril/HCTZ 20-12.5 MG] 2 tab PO DAILY 12/22/18 [History] Multivitamins [Tab-A-Amara] 1 each PO DAILY 12/22/18 [History] Simvastatin [Zocor] 20 mg PO BEDTIME 12/22/18 [History] Omeprazole 40 mg PO DAILY@0600 07/24/21 [History] allopurinoL [Zyloprim] 300 mg PO DAILY 07/24/21 [History] Cefdinir [Omnicef] 300 mg PO BID 8 Days #15 cap 07/26/21 [Rx] metroNIDAZOLE [Flagyl] 500 mg PO Q8H 8 Days #24 tablet 07/26/21 [Rx] Oxygen Therapy Mode: Room Air Referrals: Olesya Rocha NP [Nurse Practitioner] - - Discharge Summary/Plan Comment DC Time >30 min.: No Total # of Minutes for Discharge Time: 13 min - General Info Date of Service: 07/26/21 Subjective Update: Lynda states that she has not pain today, slept well last night with Vistaril. Tolerating diet, urinating. Has not had bowel movement but states she won't go unless at home. Tolerated oral Cefdinir this morning, will get Metronidazole oral this afternoon. Functional Status: Reports: Pain Controlled, Tolerating Diet, Ambulating, Urinating. Denies: New Symptoms - Patient Data Vitals - Most Recent: Last Vital Signs Temp 97.7 F 07/26/21 07:41 Pulse 92 07/26/21 07:41 Resp 18 07/26/21 07:41 BP 128/51 L 07/26/21 07:41 Pulse Ox 95 07/26/21 07:41 Weight - Most Recent: 251 lb 1.6 oz I&O - Last 24 hours: Intake & Output 07/26/21 07/26/21 07/26/21 06:59 14:59 22:59 Intake Total 100 480 Balance 100 480 Lab Results - Last 24 hrs: Laboratory Results - last 24 hr 07/26/21 07/26/21 Range/Units 06:48 06:48 WBC 4.8 (3.0-10.3) x10-3/uL RBC 3.91 (3.60-5.20) x10(6)uL Hgb 9.6 L (11.4-15.5) g/dL Hct 30.3 L (34.2-48.2) % MCV 77.6 (76.7-100.5) fL MCH 24.4 (23.9-33.9) pg MCHC 31.5 L (31.9-34.8) g/dL RDW 17.0 H (12.3-16.5) % Plt Count 325 (151-488) x10(3)uL MPV 7.6 (7.1-12.4) fL Neut % (Auto) 60.8 (30.8-76.2) % Lymph % (Auto) 20.4 (18.4-52.1) % [place] % (Auto) 11.5 (4.4-15.7) % Eos % (Auto) 6.0 (0.6-8.1) % Baso % (Auto) 1.3 (0.2-1.5) % Neut # (Auto) 2.9 (1.5-6.3) x10-3/uL Lymph # (Auto) 1.0 (1.0-4.4) x10-3/uL [place] # (Auto) 0.6 (0.3-1.0) x10-3/uL Eos # (Auto) 0.3 (0.0-0.8) x10-3/uL Baso # (Auto) 0.1 (0.0-0.1) x10-3/uL Sodium 138 (135-145) mmol/L Potassium 4.0 (3.5-5.3) mmol/L Chloride 104 (100-110) mmol/L Carbon Dioxide 25 (21-32) mmol/L BUN 15 (7-18) mg/dL Creatinine 1.3 H (0.55-1.02) mg/dL Est Cr Clr Drug Dosing 36.76 mL/min Estimated GFR (MDRD) 41 L (>60) BUN/Creatinine Ratio 11.5 (9-20) Glucose 101 (80-116) mg/dL Calcium 8.7 (8.6-10.2) mg/dL Med Orders - Current: Current Medications Discontinued Medications Acetaminophen (Acetaminophen 325 Mg Tab) 650 mg PO Q4H PRN PRN Reason: Pain (Mild 1-3)/fever Last Admin: 07/26/21 02:51 Dose: 650 mg Documented by: Allopurinol (Allopurinol 300 Mg Tab *Ptom) 300 mg PO DAILY [facility] Last Admin: 07/26/21 08:07 Dose: 300 mg Documented by: Cefdinir (Cefdinir 300 Mg Cap) 300 mg PO BID [facility] Last Admin: 07/26/21 10:20 Dose: 300 mg Documented by: Ceftriaxone Sodium (Ceftriaxone 2 Gm Vial) 2 gm IVPUSH Q24H [facility] Last Admin: 07/25/21 16:20 Dose: 2 gm Documented by: Hydromorphone HCl (Hydromorphone 2 Mg/Ml Sdv) 0.5 mg IVPUSH Q2H PRN PRN Reason: Pain (severe 7-10) Last Admin: 07/24/21 16:02 Dose: 0.5 mg Documented by: Hydroxyzine Pamoate (Hydroxyzine Pamoate 50 Mg Cap) 50 mg PO BEDTIME PRN PRN Reason: Insomnia Last Admin: 07/25/21 22:29 Dose: 50 mg Documented by: Sodium Chloride (Normal Saline) 1,000 mls @ 125 mls/hr IV ASDIRECTED [facility] Stop: 07/24/21 23:29 Last Admin: 07/24/21 15:55 Dose: 125 mls/hr Documented by: Metronidazole 500 mg/ Premix 100 mls @ 100 mls/hr IV Q8H [facility] Last Admin: 07/26/21 08:07 Dose: 100 mls/hr Documented by: Iopamidol (Iopamidol 755 Mg/Ml 150 Ml Bottle) 150 ml IV ONETIME ONE Stop: 07/24/21 14:47 Last Admin: 07/24/21 15:13 Dose: 125 ml Documented by: Ketorolac Tromethamine (Ketorolac 30 Mg/Ml Sdv) 30 mg IVPUSH Q6H PRN PRN Reason: Pain (moderate 4-6) Last Admin: 07/25/21 03:56 Dose: 30 mg Documented by: Lisinopril (Lisinopril 40 Mg Tab) 40 mg PO DAILY [facility] Last Admin: 07/26/21 08:07 Dose: 40 mg Documented by: Metronidazole (Metronidazole 500 Mg Tab) 500 mg PO Q8H [facility] Last Admin: 07/26/21 13:08 Dose: 500 mg Documented by: (Omeprazole [ Omeprazole] 40 Mg Cap.Cr) *Ptom 40 mg PO DAILY@0600 [facility] Last Admin: 07/26/21 06:07 Dose: 40 mg Documented by: Ondansetron HCl (Ondansetron 4 Mg/2 Ml Sdv) 4 mg IVPUSH Q6H PRN PRN Reason: Nausea/Vomiting Promethazine HCl (Promethazine 25 Mg Tab) 25 mg PO Q6H PRN PRN Reason: nausea, able to take PO Simvastatin (Simvastatin 20 Mg Tab *Ptom) 20 mg PO BEDTIME [facility] Last Admin: 07/25/21 20:53 Dose: 20 mg Documented by: Sodium Chloride (Sodium Chloride 0.9% 10 Ml Syringe) 10 ml FLUSH ASDIRECTED PRN PRN Reason: Keep Vein Open Last Admin: 07/26/21 02:51 Dose: 10 ml Documented by: - Exam General: Reports: Alert, Oriented, Cooperative, No Acute Distress Lungs: Reports: Clear to Auscultation, Normal Respiratory Effort Cardiovascular: Reports: Regular Rate, Regular Rhythm GI/Abdominal Exam: Normal Bowel Sounds, Soft, Non-Tender, No Distention Extremities: No Pedal Edema *Q Meaningful Use (DIS) - VTE *Q VTE Pharmacological Contraindications *Q: Risk of Bleeding
== END 2021-07-26 13:15 | disposition home or self-care (01) ==
LOC: FB.MS 14:02
PROVIDERS: ADMIT Family Medicine; ATTEND Family Medicine
DX: R10.13 Epigastric pain (principal); R10.32 Left lower quadrant pain; E78.00 Pure hypercholesterolemia, unspecified; I10 Essential (primary) hypertension; G89.29 Other chronic pain; E86.0 Dehydration; D64.9 Anemia, unspecified; Z91.040 Latex allergy status; Z88.5 Allergy status to narcotic agent; Z79.899 Other long term (current) drug therapy; Z87.19 Personal history of other diseases of the digestive system; Z90.49 Acquired absence of other specified parts of digestive tract
CPT/HCPCS: 36415; 74177; 80048; 85025; 96365; 96366; 96375; 96376; A9270-GY; G0378; J0696; J1170; J1885; J3490; J7030; Q9967

== ENCOUNTER 2022-06-08 09:17 | Emergency (ER) | payer MEDICARE, BC ==
[2022-06-08] MEDS ORDERED: Ondansetron 4 MG/2 ML SDV IVPUSH ONE (10:09)
[2022-06-08 10:12] LABS: ESTIMATED GFR 50 mL/min (>60)
[2022-06-08] MEDS ORDERED: Sodium Chloride 0.9% 1,000 ML IV SCH (10:15)
[2022-06-08] MEDS: Ketorolac 30 MG/ML SDV IVPUSH ONE ×2 (10:16→10:24)
[2022-06-08] MEDS ORDERED: Iopamidol 755 Mg/ML 100 ML Bottle IV ONE (10:56)
== END 2022-06-08 13:43 | disposition home or self-care (01) ==
LOC: FB.ED 09:17
DX: K57.32 Diverticulitis of large intestine without perforation or abscess without bleeding (principal); I10 Essential (primary) hypertension; K21.9 Gastro-esophageal reflux disease without esophagitis; F41.9 Anxiety disorder, unspecified; E03.9 Hypothyroidism, unspecified; D64.9 Anemia, unspecified; E78.00 Pure hypercholesterolemia, unspecified; E66.9 Obesity, unspecified; Z20.822 Contact with and (suspected) exposure to COVID-19; Z88.5 Allergy status to narcotic agent; Z91.040 Latex allergy status; Z79.899 Other long term (current) drug therapy
CPT/HCPCS: 71046; 74177; 80053; 81001; 82150; 83690; 85025; 86140; 96361; 96374; 99284-25; J1885; J2405; J7030; Q9967; U0002